=== PATIENT | female | born 1940 | race Caucasian/White ===

== ENCOUNTER 2016-11-20 14:56 | Emergency (ER) ==
[2016-11-20] MEDS ORDERED: BOOSTRIX VACCINE IM ONE (15:37)
[2016-11-20] MEDS ORDERED: XYLOCAINE 1% INJ ONE (15:37)
--- NOTE | 2016-11-20 15:42 | PROVIDER DOCUMENTATION ---
HPI-General Adult - General Chief Complaint: Laceration[s] Stated Complaint: FALL/HEAD INJURY/LAC Time Seen by Provider: 11/20/16 15:19 Source: patient Allergies/Adverse Reactions: Patient Allergies Allergy/AdvReac Type Severity Reaction Status Date / Time No Known Allergies Allergy Verified 11/05/16 18:10 Home Medications: Amitriptyline [Elavil] 1 tab PO BID 04/16/14 Chlordiazepoxide [Librium] 1 tab PO BID 04/16/14 Glaucoma Drops 04/16/14 Hydrocodone/APAP 10 mg/325 mg [[place]-10] 1 tab PO 4XDAY PRN PRN 04/16/14 - History of Present Illness -Gen Adult Nature of Presenting Problems: Pt. is 76 yof that presents with c/o laceration to left forehead after she fell at home. Pt. reports she tripped and fell and then pulled a lamp onto her head causing the laceration. Pt. denies any LOC, N/V, or blurred vision. Location of Pain/Injury: reports: head. denies: face, mouth, neck, chest, upper extremity, hand(s), abdomen, back, pelvis, genitalia, lower extremity, feet, upper body, lower body, generalized Pain Radiation: reports: no radiation Quality of Pain: reports: aching. denies: burning, cramping, dull, fullness, indigestion, pressure, sharp, stabbing, tearing, throbbing, tightness Severity: reports: mild. denies: moderate, severe Onset/Duration: reports: abrupt, just prior to arrival Timing: reports: still present. denies: improving, gone now, resolved prior to arrival, intermittent, constant, changing over time, getting worse Context/Activities at Onset: reports: light activity, recent trauma history. denies: recent emotional stress, recent physical stress, possible bad food, cold exposure, out of country travel Modifying Factors: improves with: nothing Associated Symptoms: reports: headaches. denies: denies symptoms, anxiety, arm pain, back/neck pain, chest pain, constipation, cough, diaphoresis, diarrhea, dizziness, EENT symptoms, fatigue, fever/chills, genitourinary problems, heartburn, joint pain, loss of appetite, malaise, muscle aches, sinus congestion /drainage, nausea, rash, seizure, shortness of breath, sensory/motor loss, pain with inspiration, swelling/mass in abdomen, syncope, vomiting, weakness, trouble walking Similar Symptoms Previously?: No Recently seen or treated by another doctor?: No Review of Systems - Adult - REVIEW OF SYSTEMS - ADULT Constitutional: reports: see HPI. denies: chills, fever, fatique Eyes: reports: see HPI. denies: discharge, blurred vision, double vision, eye pain Ears, Nose, Mouth & Throat: reports: see HPI. denies: ear discharge, ear pain, nose pain, loose teeth, mouth/dental pain, throat pain, throat swelling Cardiovascular: reports: see HPI. denies: chest pain, edema, irregular heart rate, orthopnea, palpitations, syncope Respiratory: reports: see HPI. denies: chronic cough, cough, dyspnea on exertion, pleurisy, shortness of breath, wheezing Genitourinary: reports: see HPI. denies: dysuria, discharge, hematuria, hesitency, urgency Musculoskeletal: reports: see HPI. denies: bone pain, back pain, joint pain, muscle aches, neck pain Integumentary: reports: see HPI. denies: hives, hair loss, itching, rash, skin thickening Neurological: reports: see HPI, headache/migraines. denies: ataxia, dizziness/ vertigo, numbness, seizure, slurred speech, tremors Psychiatric: reports: see HPI. denies: anxiety, depression, emotional problems , insomnia, panic attacks, suicidal thoughts Past History - Adult - PAST MEDICAL HISTORY-ADULT Review of Records: reports: Old Records Reviewed, Nursing Assessment Review, Medications Reviewed, Social history reviewed & non-contributory. Major Childhood Illnesses: reports: denies history Cardiovascular: reports: hyperlipidemia Musculoskeletal: reports: intervertebral disc disease - PRIOR SURGERIES/PROCEDURES Surgical/Procedure History: reports: hysterectomy - IMMUNIZATION STATUS Childhood Immunizations: See Nurse Assessment Flu Vaccine: See Nurse Assessment - FAMILY HISTORY Family History: reviewed, not pertinent Physical Exam-General - PHYSICAL EXAM-ADULT Initial Vital Signs Reviewed: Yes - CONSTITUTIONAL General Appearance: alert, mild distress, thin. negative: obese, anxious, lethargic, slow to respond, obtunded, combative - EYES Eyes: PERRL/EOMI, pink conjunctivae. negative: conjuctival exudate, scleral icterus, subconjunctival hemorrhage - HEAD, EARS, NOSE, MOUTH & THROAT HENMT: moist mucous membranes. negative: angioedema, frontal tenderness, maxillary tenderness - NECK Neck: non-tender, full range of motion, supple, normal inspection. negative: lymphadenopathy, trachial deviation, thyromegaly - RESPIRATORY Respiratory: lungs clear, normal breath sounds. negative: crackles, rales, rhonchi, stridor, wheezing - CARDIOVASCULAR Cardiovascular: normal peripheral pulses, regular rate, rhythm, no edema, no JVD , no murmur. negative: extra beats, friction rub, irregularly irregular - CHEST (BREASTS) Chest/Breast: deferred - GASTROINTESTINAL (ABDOMEN) Abdominal Exam: normal bowel sounds, non tender, soft. negative: distended, guarding, rigid, rebound, tenderness, hernia, mass - GENITOURINARY Female Genitalia/Pelvic Exam: deferred Rectal Exam: deferred Hemoccult Exam: deferred - LYMPHATIC Lymphatic: no adenopathy. negative: axilla node tender, cervical node tenderness - MUSCULOSKELETAL Back Exam: normal inspection, no CVA tenderness, no vertebral tenderness. negative: ecchymosis, muscle spasm, vertebral tenderness Extremity: normal range of motion, non-tender, normal inspection. negative: deformity, erythema, inflammation, swelling, tenderness Peripheral Pulses: radial (R): 2+, radial (L): 2+ - SKIN Integumentary: normal color, normal turgor, warm/dry, laceration(s) (3.5 cm to left forehead). negative: cyanosis, diaphoresis, ecchymosis, erythema, jaundice , mottled, pallor, petechiae, purpura, rash, swelling, tenderness - NEUROLOGIC Neurologic: grossly normal, no motor/sensory deficits. negative: abnormal gait , aphasia, facial droop, focal weakness, motor weakness, sensory deficit - PSYCHIATRIC Psych/Mental Status: normal mood/affect, normal thought content, normal thought process, oriented x 3. negative: anxious, paranoid, tearful Progress - PLAN OF CARE/RESULTS Progress/Plan/Lab Results: Discussed results and plan of care with patient. Patient agrees with plan and verbalizes understanding. Vital Signs Temp Pulse Resp BP Pulse Ox 11/20/16 15:02 97.8 F 115 H 18 114/67 96 No Known Allergies Allergy (Verified 11/05/16 18:10) Amitriptyline [Elavil] 1 tab PO BID 04/16/14 Chlordiazepoxide [Librium] 1 tab PO BID 04/16/14 Glaucoma Drops 04/16/14 Hydrocodone/APAP 10 mg/325 mg [[place]-10] 1 tab PO 4XDAY PRN PRN 04/16/14 Albuterol Sulfate [Proventil Hfa] 6.7 gm IH Q4H PRN #1 [email or web address] 11/03/14 Orders Category Date Time Status Laceration Set up DIRECTED Care 11/20/16 15:36 Active Wound Care DIRECTED Care 11/20/16 16:18 Active HEAD/C-SPINE W/O CONTRAST [CT] Stat Exams 11/20/16 15:38 Taken Diph,Pertuss(Acell),Tet Vac/Pf [Boostrix Vaccine] Med 11/20/16 15:37 Discontinued 0.5 ml IM .ONCE ONE Lidocaine 1% Pf [Xylocaine-Mpf 1%] 5 ml Med 11/20/16 16:03 Discontinued .ROUTE As Directed Lidocaine 1% [Xylocaine 1%] Med 11/20/16 15:37 Discontinued 10 ml INJ NOW ONE - CT/MRI 1 CT Study: Cervical Spine, Head CT Results: NAD, No Fx ([place]) Procedures - LACERATION/WOUND REPAIR/FB Head Wound Location: Other: forehead Wound Length: 3.5 cm Wound's Depth, Shape: superficial Wound Explored/Foreign Body: clean, no foreign body found Irrigated with Saline?: Yes Prepped with: Hibiclens Anesthetic: 1%, Lidocaine/Xylocaine Volume of Anesthetic (ml's): 5 Wound Repaired with: Sutures Suture Size/Type: 5.0, Nylon Number of Sutures: 7 Layer Closure?: No Sterile Dressing Applied?: Yes Splint Applied?: No Sling Applied?: No Post Procedure Neurovascular Exam: Intact Departure - Departure Time of Disposition Order: 16:22 DIAGNOSIS: Laceration Disposition: HOME 01 Certified Medical Emergency: Emergent Condition: Stable Additional Instructions: Follow up with primary care physician Return to ED in 5 to 7 days for suture removal Return to ED for any concerns or worsening of symptoms ED Follow Up Instructions: You have been treated by a care provider in the Emergency Department. These instructions are being provided to you so you can have an understanding of how to care for yourself upon discharge. Upon discharge from the Emergency Department, you are responsible for making arrangements for follow-up care by a physician of your choice. Take all prescribed medications as directed. Return to the Emergency Department immediately for any new or worsening symptoms. You may call the Physician Referral phone number at [phone] to obtain a list of Physicians who are taking new patients. Attestation - Physician/ Mid-level Attestation Patient care was provided by Mid-level provider (ONLINE MARKETING COORDINATOR/PA):: Yes Mid-level provider:: Ida Ramos Mid-level documentation review:: The Mid-level provider documentation, treatment plan and medical decision making was reviewed by the physician who agrees with all treatment and medical decision making by the MLP. The physician spent face to face time with patient:: Yes
[2016-11-20] MEDS ORDERED: XYLOCAINE-MPF 1% 5 ML ONE (16:03)
[2016-11-20 16:43] VITALS: BP 132/84
--- NOTE | 2016-11-21 08:28 | Diag Imaging Result Document ---
PROCEDURE NAME: HEAD/C-SPINE W/O CONTRAST - 11/20/2016 HEAD/C-SPINE WITHOUT CONTRAST: INDICATION: Fall. FINDINGS: CT of the brain without contrast demonstrates diffuse cerebral atrophy. There is ventriculomegaly with periventricular hypodensity, which could represent microvascular disease or transependymal edema. There is no evidence for acute infarct or hemorrhage. No midline shift or mass effect. The calvarium is intact. Noncontrasted images of the cervical spine were obtained without IV contrast. Coronal and sagittal images were reconstructed. FINDINGS: There are diffuse degenerative changes. No acute fracture or subluxation is appreciated. There is no precervical soft tissue swelling. No acute abnormality cervical spine. IMPRESSION: 1. Stable atrophy and microvascular disease with ventriculomegaly. 2. Normal pressure hydrocephalus is not excluded. 3. Degenerative changes cervical spine. 4. No acute fracture or dislocation.
== END 2016-11-20 16:41 | disposition home or self-care (01) ==
LOC: P.ED 14:56
DX: S01.81XA Laceration without foreign body of other part of head, initial encounter (principal); Z79.899 Other long term (current) drug therapy; R51 Headache; E78.5 Hyperlipidemia, unspecified; M48.9 Spondylopathy, unspecified; Z23 Encounter for immunization; W19.XXXA Unspecified fall, initial encounter
CPT/HCPCS: 70450; 72125; 90471; 90715

== ENCOUNTER 2017-05-05 11:26 | Inpatient (IN) ==
[2017-05-05 12:10] LABS: URINE CULTURE PL NEEDED? NO
[2017-05-05 12:14] LABS: MANUAL DIFF NEEDED? NO
[2017-05-05 12:17] LABS: BASO% 0.2 % (0.0-0.8); EOS# 0.05 X1000 (0.0-0.7); EOS% 0.4 % (0.0-10.0); HEMATOCRIT 39.8 % (37.0-47.0); HEMOGLOBIN 13.8 g/dL (12.0-16.0); IMM GRAN# 0.03 X1000 (0.0-0.04); IMM GRAN% 0.2 % (0.0-0.5); LYMPH# 1.78 X1000 (1.2-3.4); LYMPH% 14.8 % (20.5-51.1); MCH 30.3 PG (27-31); MCHC 34.7 g/dL (33-37); MCV 87.5 FL (81-99); MONO# 0.99 X1000 (0.11-0.59); MONO% 8.2 % (1.7-9.3); MPV 10.7 FL (7.4-10.4); NEUT% 76.2 % (42.2-75.2); PLT 202 X1000 (130-400); RBC 4.55 XMIL (4.2-5.4)
[2017-05-05 12:19] LABS: BILIRUBIN URINE NEGATIVE (NEGATIVE); BLOOD URINE NEGATIVE (NEGATIVE); CLARITY CLEAR (CLEAR); COLOR YELLOW; GLUCOSE URINE NEGATIVE (NEGATIVE); LEUKOCYTES URINE NEGATIVE (NEGATIVE); NITRITE URINE NEGATIVE (NEGATIVE); PROTEIN URINE NEGATIVE (NEGATIVE); SP GRAVITY URINE 1.005; UROBILINOGEN URINE NORMAL
[2017-05-05 12:21] LABS: UR AMPHETAMINES QUAL NONE DETECTED (NONE DETECT); UR BARBITUATES QUAL NONE DETECTED (NONE DETECT); UR BENZODIAZEPIN QUAL PRESUMPTIVE POSITIVE (NONE DETECT); UR CANNABINOIDS QUAL NONE DETECTED (NONE DETECT); UR COCAINE QUAL NONE DETECTED (NONE DETECT); UR MDMA QUAL NONE DETECTED (NONE DETECT); UR METHADONE QUAL NONE DETECTED (NONE DETECT); UR METHAMPHETAMINE QUAL NONE DETECTED (NONE DETECT); UR OPIATES QUAL NONE DETECTED (NONE DETECT); UR OXYCODONE QUAL NONE DETECTED (NONE DETECT); UR PCP QUAL NONE DETECTED (NONE DETECT); UR TCA QUAL PRESUMPTIVE POSITIVE (NONE DETECT)
[2017-05-05 12:31] LABS: INR 0.95 (0.86-1.15)
[2017-05-05 12:32] LABS: URINE CAST NONE SEEN /LPF; URINE CRYSTAL NONE SEEN /HPF; URINE EPITHELIAL CELLS <10 /HPF (<10); URINE RBC <10 /HPF (<10); URINE SOURCE CLEAN CATCH; URINE WBC <10 /HPF (<10)
[2017-05-05 12:33] LABS: AGAP 14; ALBUMIN 4.7 g/dL (3.5-5.0); ALKALINE PHOSPHATASE 80 U/L (32-104); BUN 8 mg/dL (8-22); CALCIUM 9.8 mg/dL (8.8-10.2); CHLORIDE 100 mmol/L (98-107); COSMO 281; GOT 24 U/L (10-30); GPT 18 U/L (10-36); POTASSIUM 3.6 mmol/L (3.5-5.1); SODIUM 141 mmol/L (136-145); TCO2 27 mmol/L (25-35); TOTAL PROTEIN 7.5 g/dL (6.3-8.3)
[2017-05-05 12:35] LABS: CK PROFILE 467 U/L (24-173)
--- NOTE | 2017-05-05 12:38 | Diag Imaging Result Doc PS360 ---
HEAD W/O CONTRAST - 05/05/2017 INDICATION: AMS TECHNIQUE: A CT dose reduction protocol was used. COMPARISON: 11/20/2016 FINDINGS: Stable moderate diffuse cerebral atrophy. Stable advanced periventricular white matter hypodensity in the cerebral hemispheres compatible with chronic microvascular disease. No intracranial mass or hemorrhage. The skull is intact. The sinuses, mastoids, and middle ears are clear. IMPRESSION: Stable significant chronic microvascular disease of the cerebral white matter. No acute disease or change from prior. Electronically signed by Seaums Adamson 05/05/2017 12:36 PM
--- NOTE | 2017-05-05 12:47 | Diag Imaging Result Doc PS360 ---
CHEST-1 VIEW - 05/05/2017 INDICATION: AMS TECHNIQUE: COMPARISON: 11/03/2014 FINDINGS: The lungs are normally expanded and clear. Heart size and mediastinal contours are normal. No pneumothorax or pleural effusion. IMPRESSION: Negative exam. Electronically signed by Seamus Adamson 05/05/2017 12:45 PM
[2017-05-05 12:50] LABS: CK INDEX 1.3 (0.0-2.5); CK-MB 5.96 ng/mL (0.0-5.0)
[2017-05-05 13:06] LABS: BE 2.4 mmoll (-3.0-3.0); BLOOD TYPE ARTERIAL; DRAW SITE R BRACHIAL; METHB 1.4 % (0.0-1.5); O2(CT) 18.7 mL/dL (15.0-23.0); PCO2(98.6) 42 mmHg (35-45); PO2(98.6) 69 mmHg (60-100); SAMPLE BLOOD; SAO2 96.9 % (95.0-100.0); THB 14.2 g/dL (11.5-17.4); pH(98.6) 7.42 (7.35-7.45)
[2017-05-05 13:09] LABS: ALLEN TEST YES; MODALITY ROOM AIR
--- NOTE | 2017-05-05 13:29 | PROVIDER DOCUMENTATION ---
This chart was entered by Chela Sinha Scribe, acting as scribe for Kyleigh Dickinson MD. HPI-Neurological Disorder - General Chief Complaint: Altered Mental Status Stated Complaint: AMS Time Seen by Provider: 05/05/17 11:29 Source: patient, EMS Allergies/Adverse Reactions: Patient Allergies Allergy/AdvReac Type Severity Reaction Status Date / Time No Known Allergies Allergy Verified 05/05/17 11:30 Home Medications: Home Medication List Medication Instructions Recorded Confirmed Last Taken Type Amitriptyline [Elavil] 1 tab PO BID 04/16/14 11/05/16 Unknown History Chlordiazepoxide [Librium] 1 tab PO BID 04/16/14 11/05/16 Unknown History Glaucoma Drops 04/16/14 09/21/14 Unknown History Hydrocodone/APAP 10 mg/325 mg 1 tab PO 4XDAY PRN PRN 04/16/14 11/05/16 Unknown History [[place]-10] Albuterol Sulfate [Proventil Hfa] 6.7 gm IH Q4H PRN #1 [id number].[id number] 11/03/1411/05 Unknown Rx Atorvastatin Calcium [Lipitor] 40 mg PO HS 11/26/16 11/26/16 Unknown History Quetiapine Fumarate [Seroquel] 100 mg PO HS 11/26/16 11/26/16 Unknown History - History of Present Illness-Neuro Nature of Presenting Problem: Pt is 77 y/o F presents to the ED via EMS for AMS. EMS states Pt was found in floor at assisted living. EMS states Pt was covered in urine and feces. EMS states Pt had cataract surgery yesterday. Pt is oriented to person and place but is not to time. Pt states it is 1971. Headache Location: denies: frontal, temporal, occipital, parietal, global Severity: reports: mild Onset/Duration: reports: last night Timing: reports: still present Context: reports: other (AMS) Character of Altered Mental Status: reports: confused Any recent trauma/injury?: reports: none Character of Deficits: denies: new weakness, altered sensation, vision problem/ glaucoma, impaired speech, impaired swallowing, decreased ability to stand, decreased ability to walk, falling New weakness or altered sensation location:: reports: none Cognitive Baseline: alert but confused Gait Baseline: walks without assistance Associated Symptoms: reports: denies symptoms Similar Symptoms Previously?: Yes Recently seen or treated by another doctor?: No Review of Systems - Adult - REVIEW OF SYSTEMS - ADULT Constitutional: reports: no symptoms reported Eyes: reports: no symptoms reported Ears, Nose, Mouth & Throat: reports: no symptoms reported Cardiovascular: reports: no symptoms reported Respiratory: reports: no symptoms reported Gastrointestinal: reports: no symptoms reported Genitourinary: reports: no symptoms reported Musculoskeletal: reports: no symptoms reported Integumentary: reports: no symptoms reported Neurological: reports: other (AMS). denies: dizziness/vertigo, headache/ migraines, syncope Psychiatric: reports: no symptoms reported Endocrine: reports: no symptoms reported Hematologic/Lymphatic: reports: no symptoms reported Allergic/Immunologic: reports: no symptoms reported All Other Systems: Reviewed and Negative Past History - Adult - PAST MEDICAL HISTORY-ADULT Review of Records: reports: Nursing Assessment Review, Medications Reviewed, Social history reviewed & non-contributory. Major Childhood Illnesses: reports: denies history Cardiovascular: reports: hyperlipidemia Respiratory: reports: denies history Gastrointestinal: reports: denies history Obstetrical/Gynecological: reports: denies history Genitourinary: reports: denies history Musculoskeletal: reports: intervertebral disc disease Neurological: reports: denies history Endocrine/Immune: reports: denies history Other Conditions: reports: denies history - PRIOR SURGERIES/PROCEDURES Surgical/Procedure History: reports: hysterectomy - IMMUNIZATION STATUS Childhood Immunizations: See Nurse Assessment Flu Vaccine: See Nurse Assessment - FAMILY HISTORY Family History: reviewed, not pertinent - SOCIAL HISTORY Smoking: quit greater than 1 year, cigarettes Substance Use: denies Living Situation: family Physical Exam- Neurological - Physical Exam-Neuro Initial Vital Signs Reviewed: Yes General Appearance: appears well, alert, no apparent distress Eye Exam: bilateral eye: normal inspection, PERRL, EOMI HENMT: normocephalic/atraumatic, moist mucous membranes, normal ENT inspection Head Injury: no evidence of injury Neck: non-tender, full range of motion, supple, normal inspection Respiratory: chest non-tender, lungs clear, normal breath sounds Cardiovascular: normal peripheral pulses, regular rate, rhythm Abdominal Exam: normal bowel sounds, non tender, soft Lymphatic: no adenopathy Extremity: normal range of motion, non-tender, normal gait, normal inspection geodesist Exam: normal hearing, normal speech, PERRL Motor/Sensory: no motor deficit, no sensory deficit, no pronator drift Neurologic: grossly normal Integumentary: normal color, normal turgor Psych/Mental Status: disheveled, other (disoriented to time) Progress - PLAN OF CARE/RESULTS Progress/Plan/Lab Results: Vital Signs - 8 hr 05/05/17 11:27 Temperature 97.2 F L Pulse Rate 89 Respiratory Rate 18 Blood Pressure 173/125 O2 Sat by Pulse Oximetry 93 L Laboratory Results - last 24 hr 05/05/17 05/05/17 05/05/17 12:00 12:00 12:07 WBC RBC Hgb Hct MCV MCH MCHC RDW Std Deviation Plt Count MPV Immature Gran % (Auto) Neut % (Auto) Lymph % (Auto) [place] % (Auto) Eos % (Auto) Baso % (Auto) Immature Gran # (Auto) Neut # (Auto) Lymph # (Auto) [place] # (Auto) Eos # (Auto) Baso # (Auto) PT INR APTT (Factor Assay) D-Dimer Specimen Type Sample Site pH pCO2 pO2 HCO3 Base Excess Oxyhemoglobin ABG O2 Sat (Calculated) ABG O2 Saturation ABG Carboxyhemoglobin ABG Methemoglobin Richard Test A-a O2 Difference Total Hemoglobin Lactate Blood Gas Modality FiO2 % Sodium 141 Potassium 3.6 Chloride 100 Carbon Dioxide 27 Anion Gap 14 BUN 8 Creatinine 0.7 Estimated GFR/1.73 m2 > 60 BUN/Creatinine Ratio 11 Glucose 128 H Calculated Osmolality 281 Calcium 9.8 Total Bilirubin 0.40 AST 24 ALT 18 Alkaline Phosphatase 80 Creatine Kinase 467 H Creatine Kinase Index 1.3 CK-MB (CK-2) 5.96 H Troponin T [id number] Pept Total Protein 7.5 Albumin 4.7 Globulin 3.0 Albumin/Globulin Ratio 2.0 Plasma Lactate Urine Source CLEAN CATCH Urine Color YELLOW Urine Clarity CLEAR Urine pH 7.0 Ur Specific [place] 1.005 Urine Protein NEGATIVE Urine Ketones NEGATIVE Urine Blood NEGATIVE Urine Nitrite NEGATIVE Urine Bilirubin NEGATIVE Urine Urobilinogen NORMAL Urine Microscopic RBC <10 Urine WBC NEGATIVE Urine Microscopic WBC <10 Ur Epithelial Cells <10 Urine Crystals NONE SEEN Urine Bacteria NEGATIVE Urine Casts NONE SEEN Urine Yeast NONE SEEN Urine Glucose NEGATIVE Urine Opiates Screen NONE DETECTED Ur Oxycodone Screen NONE DETECTED Urine Methadone Screen NONE DETECTED Ur Barbituates Screen NONE DETECTED Ur Tricyclics Screen PRESUMPTIVE POSITIVE A Ur Phencyclidine Scrn NONE DETECTED Ur Amphetamines Screen NONE DETECTED U Methamphetamines Scrn NONE DETECTED Urine MDMA Screen NONE DETECTED U Benzodiazepines Scrn PRESUMPTIVE POSITIVE A Urine Cocaine Screen NONE DETECTED U Cannabinoids Screen NONE DETECTED Plasma/Serum Ethyl Alc 05/05/17 05/05/17 05/05/17 12:07 12:07 12:07 WBC RBC Hgb Hct MCV MCH MCHC RDW Std Deviation Plt Count MPV Immature Gran % (Auto) Neut % (Auto) Lymph % (Auto) [place] % (Auto) Eos % (Auto) Baso % (Auto) Immature Gran # (Auto) Neut # (Auto) Lymph # (Auto) [place] # (Auto) Eos # (Auto) Baso # (Auto) PT INR APTT (Factor Assay) D-Dimer Specimen Type Sample Site pH pCO2 pO2 HCO3 Base Excess Oxyhemoglobin ABG O2 Sat (Calculated) ABG O2 Saturation ABG Carboxyhemoglobin ABG Methemoglobin Richard Test A-a O2 Difference Total Hemoglobin Lactate Blood Gas Modality FiO2 % Sodium Potassium Chloride Carbon Dioxide Anion Gap BUN Creatinine Estimated GFR/1.73 m2 BUN/Creatinine Ratio Glucose Calculated Osmolality Calcium Total Bilirubin AST ALT Alkaline Phosphatase Creatine Kinase Creatine Kinase Index CK-MB (CK-2) Troponin T < 0.010 [id number]-Pltznpjemzf Pept 263 Total Protein Albumin Globulin Albumin/Globulin Ratio Plasma Lactate 2.0 Urine Source Urine Color Urine Clarity Urine pH Ur Specific [place] Urine Protein Urine Ketones Urine Blood Urine Nitrite Urine Bilirubin Urine Urobilinogen Urine Microscopic RBC Urine WBC Urine Microscopic WBC Ur Epithelial Cells Urine Crystals Urine Bacteria Urine Casts Urine Yeast Urine Glucose Urine Opiates Screen Ur Oxycodone Screen Urine Methadone Screen Ur Barbituates Screen Ur Tricyclics Screen Ur Phencyclidine Scrn Ur Amphetamines Screen U Methamphetamines Scrn Urine MDMA Screen U Benzodiazepines Scrn Urine Cocaine Screen U Cannabinoids Screen Plasma/Serum Ethyl Alc 05/05/17 05/05/17 05/05/17 12:07 12:07 12:07 WBC 12.02 H RBC 4.55 Hgb 13.8 Hct 39.8 MCV 87.5 MCH 30.3 MCHC 34.7 RDW Std Deviation 13.3 Plt Count 202 MPV 10.7 H Immature Gran % (Auto) 0.2 Neut % (Auto) 76.2 H Lymph % (Auto) 14.8 L [place] % (Auto) 8.2 Eos % (Auto) 0.4 Baso % (Auto) 0.2 Immature Gran # (Auto) 0.03 Neut # (Auto) 9.14 H Lymph # (Auto) 1.78 [place] # (Auto) 0.99 H Eos # (Auto) 0.05 Baso # (Auto) 0.03 PT 13.0 INR 0.95 APTT (Factor Assay) 36.0 D-Dimer 0.25 Specimen Type Sample Site pH pCO2 pO2 HCO3 Base Excess Oxyhemoglobin ABG O2 Sat (Calculated) ABG O2 Saturation ABG Carboxyhemoglobin ABG Methemoglobin Richard Test A-a O2 Difference Total Hemoglobin Lactate Blood Gas Modality FiO2 % Sodium Potassium Chloride Carbon Dioxide Anion Gap BUN Creatinine Estimated GFR/1.73 m2 BUN/Creatinine Ratio Glucose Calculated Osmolality Calcium Total Bilirubin AST ALT Alkaline Phosphatase Creatine Kinase Creatine Kinase Index CK-MB (CK-2) Troponin T [id number]-Tgnyflvtvlo Pept Total Protein Albumin Globulin Albumin/Globulin Ratio Plasma Lactate Urine Source Urine Color Urine Clarity Urine pH Ur Specific [place] Urine Protein Urine Ketones Urine Blood Urine Nitrite Urine Bilirubin Urine Urobilinogen Urine Microscopic RBC Urine WBC Urine Microscopic WBC Ur Epithelial Cells Urine Crystals Urine Bacteria Urine Casts Urine Yeast Urine Glucose Urine Opiates Screen Ur Oxycodone Screen Urine Methadone Screen Ur Barbituates Screen Ur Tricyclics Screen Ur Phencyclidine Scrn Ur Amphetamines Screen U Methamphetamines Scrn Urine MDMA Screen U Benzodiazepines Scrn Urine Cocaine Screen U Cannabinoids Screen Plasma/Serum Ethyl Alc 05/05/17 12:45 WBC RBC Hgb Hct MCV MCH MCHC RDW Std Deviation Plt Count MPV Immature Gran % (Auto) Neut % (Auto) Lymph % (Auto) [place] % (Auto) Eos % (Auto) Baso % (Auto) Immature Gran # (Auto) Neut # (Auto) Lymph # (Auto) [place] # (Auto) Eos # (Auto) Baso # (Auto) PT INR APTT (Factor Assay) D-Dimer Specimen Type ARTERIAL Sample Site R BRACHIAL pH 7.42 pCO2 42 pO2 69 HCO3 26.7 H Base Excess 2.4 Oxyhemoglobin 93.5 L ABG O2 Sat (Calculated) 18.7 ABG O2 Saturation 96.9 ABG Carboxyhemoglobin 2.10 ABG Methemoglobin 1.4 Richard Test YES A-a O2 Difference 28.0 Total Hemoglobin 14.2 Lactate 0.90 Blood Gas Modality ROOM AIR FiO2 % 21.0 Sodium Potassium Chloride Carbon Dioxide Anion Gap BUN Creatinine Estimated GFR/1.73 m2 BUN/Creatinine Ratio Glucose Calculated Osmolality Calcium Total Bilirubin AST ALT Alkaline Phosphatase Creatine Kinase Creatine Kinase Index CK-MB (CK-2) Troponin T [id number] Pept Total Protein Albumin Globulin Albumin/Globulin Ratio Plasma Lactate Urine Source Urine Color Urine Clarity Urine pH Ur Specific [place] Urine Protein Urine Ketones Urine Blood Urine Nitrite Urine Bilirubin Urine Urobilinogen Urine Microscopic RBC Urine WBC Urine Microscopic WBC Ur Epithelial Cells Urine Crystals Urine Bacteria Urine Casts Urine Yeast Urine Glucose Urine Opiates Screen Ur Oxycodone Screen Urine Methadone Screen Ur Barbituates Screen Ur Tricyclics Screen Ur Phencyclidine Scrn Ur Amphetamines Screen U Methamphetamines Scrn Urine MDMA Screen U Benzodiazepines Scrn Urine Cocaine Screen U Cannabinoids Screen Plasma/Serum Ethyl Alc Orders Category Date Time Status Cardiac Monitoring DIRECTED Care 05/05/17 11:40 Active Finger Stick Blood Sugar (ED) DIRECTED Care 05/05/17 11:40 Active Saline Loc NOW Care 05/05/17 11:40 Active CHEST-1 VIEW [RAD] Stat Exams 05/05/17 11:40 Completed HEAD W/O CONTRAST [CT] Stat Exams 05/05/17 11:41 Completed ABG [RESP] Routine Lab 05/05/17 12:45 Completed ALCOHOL BLOOD Stat Lab 05/05/17 12:07 Completed BLOOD CULTURE [BLDCUL] Stat Lab 05/05/17 11:40 Ordered CBC WITH ELECTRONIC DIFF [HEME] Stat Lab 05/05/17 12:07 Completed CK PROFILE [SP CHEM] Stat Lab 05/05/17 12:07 Completed COMPREHENSIVE METABOLIC PANEL [CHEM] Stat Lab 05/05/17 12:[address] D-DIMER PL [COAG] Stat Lab 05/05/17 12:07 Completed LACTATE, PLASMA [CHEM] Stat Lab 05/05/17 12:07 Completed PRO B-NATRIURETIC PEPTIDE Stat Lab 05/05/17 12:07 Completed PROTIME WITH INR PL [COAG] Stat Lab 05/05/17 12:[address] [COAG] Stat Lab 05/05/17 12:07 Completed TROPONIN T Stat Lab 05/05/17 12:[address] W/POSS RFLX CULT [URINALYSIS] Stat Lab 05/05/17 12:00 Completed URINE DRUG SCREEN PL Stat Lab 05/05/17 12:00 Completed Pulse Oximetry Stat Oth 05/05/17 11:40 Active EKG [EKG] Stat Ther 05/05/17 11:40 Ordered Result Diagrams: 05/05/17 12:07 05/05/17 12:07 - XRAY 1 XRAY Study: Chest Impression: Normal XRAY Interpretation: negative exam - CT/MRI 1 CT Study: Head Impression: Abnormal (stable significant chronic microvascular disease of the cerebral white matter. no acute disease or change from prior) - CONSULTS/PCP/HOSPITALIST Notification #1 *Consult/PCP/Hospitalist*: Dr. Esqueda Time Discussed: 13:28 Consult Disposition: Will see in ED, Admit Departure - Departure Date of Disposition Decision: 05/05/17 Time of Disposition Decision: 13:27 DIAGNOSIS: Altered mental status Disposition: ADMITTED INPATIENT 09 Certified Medical Emergency: Emergent Condition: Stable Referrals and Follow-Ups: Minh Esqueda MD [Primary Care Provider] - - Critical Care Note This patient required my direct & personal management of CC.: Yes Total Time (mins): 35 Critical Care Statement: This patient required my direct personal management to treat or rule out processes, the absence of which, could potentiallly result in sudden, clinically significant life or limb threatening deterioration. This chart was documented by the indicated scribe, (Chela Sinha Scribe) and accurately reflects the services I performed and decisions made by me, Kyleigh Dickinson MD, as attested by the provider's signature.
--- NOTE | 2017-05-05 13:36 | EKG Report ---
Test Performed on : 05/05/2017 1:18:18 PM Test Reason : AMS Blood Pressure : / mmHG Vent. Rate : 079 BPM Atrial Rate : 079 BPM P-R Int : 186 ms QRS Dur : 078 ms QT Int : 394 ms P-R-T Axes : 070 023 049 degrees QTc Int : 451 ms Normal sinus rhythm. Cannot rule out Inferior infarct , age undetermined T wave abnormality, consider anterior ischemia Abnormal ECG When compared with ECG of 29-JUL-2007 19:37, premature ventricular complexes. are no longer present T wave inversion now evident in Inferior leads Nonspecific T wave abnormality now evident in Lateral leads Unconfirmed Result
[2017-05-05] MEDS ORDERED: GEODON PO ONE (20:54)
[2017-05-05] MEDS ORDERED: GEODON IM ONE (21:30)
[2017-05-05] MEDS ORDERED: STERILE WATER INJ. INJ ONE (21:30)
[2017-05-05] MEDS ORDERED: ATIVAN IV ONE (21:55)
--- NOTE | 2017-05-06 13:52 | PROGRESS NOTE ---
DATE: 05/06/2017 SUBJECTIVE: She was admitted last night with a mental breakdown, having been found on the floor covered with feces, smeared all over the mina. Has had a history of chronic pain and been on narcotics. She also has some history of chronic anxiety, but recently according to her daughter and from the nurses report, she has been trying to strangle people, including her granddaughter. She is currently alert and oriented to person, place and time. She is dwelling on people, her , and issues about a man that lives in the apartment that she does with sexual kind of connotations, and then she talks about the of 1 of her daughter's husbands. Very tearful at times. She is not psychotic at this point in time. We are going to give her some Geodon to keep her from behaving that way. VITAL SIGNS: Temp 97.5 degrees, pulse 89, respiratory rate 18, blood pressure 188/88, and O2 saturation was 99. LABS: Her CBC was 12,000, normal differential, hematocrit 40 and normal indices. Platelet count 202,000. Urine basically negative, complement normal, random blood sugar 128. She had a CK of 467, MB band 5.96. Troponin however was 0.010. She is not really complaining of chest pain anyhow. D-dimer 0.25. Blood gases were adequate with a pH of 7.2, pCO2 42, PO2 69 on room air. MEDICATIONS: Medication includes p.r.n. Ativan and we are starting the Geodon. Her medications at home include: 1. Amitriptyline 10 b.i.d. 2. Librium 1 p.o. b.i.d. 3. Seroquel 100 at bedtime. 4. [place] 1 tab t.i.d. Right now, I do not think she is in any kind of withdrawal issues. I hope to get psych evaluation. cc: Minh Esqueda MD
[2017-05-06] MEDS: PATIENT'S OWN MED OPH SCH (17:47)
[2017-05-06] MEDS: PRED FORTE 1% OPH SUSPENSION OPH SCH (17:48)
[2017-05-06] MEDS ORDERED: STERILE WATER INJ. INJ ONE (20:53)
[2017-05-06] MEDS ORDERED: GEODON IM ONE (20:53)
[2017-05-06 21:52] LABS: MANUAL DIFF NEEDED? NO
[2017-05-06 22:02] LABS: BASO% 0.2 % (0.0-0.8); EOS# 0.14 X1000 (0.0-0.7); EOS% 1.3 % (0.0-10.0); HEMATOCRIT 39.4 % (37.0-47.0); HEMOGLOBIN 13.5 g/dL (12.0-16.0); IMM GRAN# 0.02 X1000 (0.0-0.04); IMM GRAN% 0.2 % (0.0-0.5); LYMPH% 31.2 % (20.5-51.1); MCH 30.2 PG (27-31); MCHC 34.3 g/dL (33-37); MCV 88.1 FL (81-99); MONO# 0.96 X1000 (0.11-0.59); MONO% 9.1 % (1.7-9.3); MPV 10.9 FL (7.4-10.4); PLT 216 X1000 (130-400); RBC 4.47 XMIL (4.2-5.4)
[2017-05-06 22:16] LABS: AGAP 13; ALKALINE PHOSPHATASE 73 U/L (32-104); BUN 9 mg/dL (8-22); CALCIUM 9.1 mg/dL (8.8-10.2); CHLORIDE 98 mmol/L (98-107); COSMO 270; GOT 17 U/L (10-30); GPT 16 U/L (10-36); POTASSIUM 3.2 mmol/L (3.5-5.1); SODIUM 135 mmol/L (136-145); TCO2 24 mmol/L (25-35); TOTAL PROTEIN 6.7 g/dL (6.3-8.3)
--- NOTE | 2017-05-07 06:20 | Diag Imaging Result Doc PS360 ---
EXAM: HEAD W/O CONTRAST HISTORY: FAll TECHNIQUE: Dose reduction protocol COMPARISON: 05/05/2017 FINDINGS: No parenchymal hemorrhage. No epidural or subdural hematoma. No subarachnoid hemorrhage. No mass identified on this noncontrasted exam. No hydrocephalus. There is atrophy and chronic microvascular ischemic changes. No change compared to the prior exam. No sinus opacification. IMPRESSION: 1.No hemorrhage. No injury. 2.Atrophy with chronic microvascular ischemic changes. 3.A preliminary report was given at 11:10 PM Electronically signed by Antoni Mares 05/07/2017 6:18 AM
--- NOTE | 2017-05-07 07:09 | Diag Imaging Result Doc PS360 ---
EXAM: CHEST-2 VIEWS HISTORY: Fall TECHNIQUE: AP COMPARISON: 05/05/2017 FINDINGS: The lungs are well expanded. The heart is not enlarged. The vessels are not distended. There are no infiltrates. No pleural effusions. No contusions. No pneumothoraces. No compressed thoracic vertebra. IMPRESSION: No injury. Electronically signed by Antoni Mares 05/07/2017 7:07 AM
[2017-05-07] MEDS: PRED FORTE 1% OPH SUSPENSION OPH SCH ×2 (07:32→09:03)
[2017-05-07] MEDS ORDERED: GEODON PO SCH (09:00)
[2017-05-07] MEDS: PATIENT'S OWN MED OPH SCH (09:02)
[2017-05-07 11:51] VITALS: BP 126/61
--- NOTE | 2017-06-03 09:11 | HISTORY AND PHYSICAL ---
HISTORY OF PRESENT ILLNESS: The patient is a patient of mine in the office. She presented to the ER, brought in by EMS for altered mental status. EMS said that the patient was found on her floor at assisted living. She was covered with urine and feces. States she had rubbed it in her hair. She had cataract surgery just prior to this day. She is oriented to person and place but not to time. The patient states that it is 1970s. She denies any headache. Apparently, last night, this is when it started. She had been confused. She denies any new weaknesses, altered sensation, visual problems, impaired speech, impaired swallowing, decreased ability to stand, decreased ability to walk, or falling. She is on amitriptyline, Librium, and she had been on hydrocodone. We had been trying to wean her off of her hydrocodone that she has been getting for some chronic back pain. She is also on albuterol inhaler, Lipitor, and Seroquel 100. ALLERGIES: She has no known allergies. PAST MEDICAL HISTORY: Hyperlipidemic. She has a history of intravertebral disk disease in her back. She has had a previous hysterectomy. SOCIAL HISTORY: Quit smoking greater than a year ago but had smoked a good portion of her adult life. REVIEW OF SYSTEMS: Constitutional: Denies any fever, chills, weight gain, or weight loss. Eyes: No change in visual schultz. No irritation. No tearing. Ears/Nose/Throat: No pharyngitis, otitis, or sinusitis. Cardiovascular: She denies any chest pain, palpitations, edema, PND, orthopnea, claudication, or exertional dyspnea. Respiratory: No acute cough. She has a chronic cough. Has had a little underlying lung disease and somewhat short of breath at times with activity. Genitourinary: Prior to this, no incontinence of stool and bladder. She denies any dysuria, hematuria, or polyuria. She denies any melena or hematochezia. Musculoskeletal: Negative. Skin: Clear. Neurological: Other than altered mental status, no unilateral weakness or altered mental status. Psychiatric: She has been very paranoid about her daughter and very angry about one of her daughters who has moved out and moved her into assisted living. VITAL SIGNS: At the time of admission, she had a temperature of 97.2, pulse was 89, respiratory rate was 18, blood pressure 173/125, O2 saturation was 93. DIAGNOSTIC DATA: Her electrolytes were normal. BUN was 8, creatinine 0.7, GFR greater than 60, blood sugar 128, calcium 9.8. Total bilirubin 0.4, AST 24, ALT 18, alkaline phosphatase 80. CK 467, CK index 1.3, index is 5.96. Total protein 7.5, albumin 4.7, globulin 3. Urinalysis 1.005 specific gravity, otherwise generally negative for white cells and red cells and bacteria. Urine was positive for tricyclics and benzodiazepines. No opiates on board. Troponin, BNP, lactic acid level were all negative. White count was 12,000, hematocrit was 40, platelet count was 202,000. INR was 0.95. D-dimer of 0.25. Blood gas pH 7.2, pCO2 of 42, pO2 was 69, room air 21. While in the ER, she was just primarily tested. Chest x-ray was read as negative. CT of the head was abnormal, stable significant chronic microvascular disease of the cerebral white matter. No acute disease was identified. IMPRESSION AND PLAN: She was admitted for altered mental status, perhaps related to medications or lack thereof. cc: Minh Esqueda MD
--- NOTE | 2017-08-24 18:27 | ED EKG INTERP ---
This chart was entered by Chela Sinha Scribe, acting as scribe for Kyleigh Dickinson MD. EKG Interpretation - EKG Time of EKG reading by physician:: 13:18 EKG Read and Signed by:: Kyleigh Dickinson EKG Interpretation (*Must complete 3 of following elements*): Abnormal (T wave abnormality, consider anterior ischemia) Rate: 79 Rhythm: normal sinus rhythm Comments: cannot rule out inferior infarct, age undetermined Attestation - Physician/ JANIS Attestation Patient care was provided by Advanced Practice Provider:: No The physician spent face to face time with patient:: Yes Advanced Practice Provider documentation review:: Supervising physician onsite and consulted in the evaluation and care of this patient. The physician did have a face to face encounter with the patient. This chart was documented by the indicated scribe, (Chela Sinha Scribe) and accurately reflects the services I performed and decisions made by me, Kyleigh Dickinson MD, as attested by the provider's signature.
== END 2017-05-07 13:07 ==
LOC: P.ED 11:26 → P.MEDSURG 15:29
PROVIDERS: ADMIT Internal Medicine; ATTEND Internal Medicine